=== PATIENT | male | born 1965 | race Caucasian/White ===

== ENCOUNTER → 2017-08-27 | Outpatient (CLI) | payer OTHER ==
[~2017-08-27] MED LIST: AMITRIPTYLINE H25 M2 PO; COREG6.25 MG PO; ETODOLAC500 MG PO; FLEXERIL PO; LOSARTAN POTAS100 MG PO; MEDROLDOSEPACK PO; TRAMADOL 50 MG50 MG PO
--- NOTE | 2017-09-08 08:16 | PAINCON ---
[address] [address] PAIN MANAGEMENT CONSULTATION Name: PAPI RAMOS Room: [facility] JOSHUA HarryYung#: [id number] Admission: 08/27/17 Attend Phys: Tracey Faria MD Discharge: Date of : 67 Report #: [id number] THIS REPORT FOR: //name// CC: Edward PHILLIPS MD DATE OF SERVICE: 08/27/2017 CHIEF COMPLAINT: "I had back surgery about 4 years ago, and now, I have pain down in my leg again, I was sent here for an injection." FOLLOWUP HISTORY: The patient is a 51-year-old gentleman, who has been referred to the Pain Clinic for evaluation. The patient states that he had some problems with his back in the past. He had lumbar radicular pain that was radiating down into his leg. He underwent back surgery. He did relatively well for quite a number of years. This was back in 2013. Over the last few weeks, he has noted some worsening of pain and discomfort, which has started in the lower portion of his back and radiates down into the anterior portion of his left leg, top of his foot, with numbness in the area of his big toe. He followed up with his physician, Dr. Phillips. He has been referred to the Pain Clinic for evaluation with the possibility of an epidural steroid injection to note its efficacy. He denies any trauma. He denies any real change in bowel or bladder function at this juncture. He finds it difficult to engage in activities of daily living. Notes that the pain is problematic when he is walking. He can walk for a period of time, then his pain becomes extremely problematic. This limits his ability to walk. He must stop and then sit down. After a few minutes, he notes the pain somewhat dissipates and then he is able to proceed again, but still continuing to be limited in the amount of activity he can engage in. He rates his pain as a 3/10 at this juncture. It can rise to the level of 9/10, which stops him from engaging in any further activities. ALLERGIES: No known drug allergies. CURRENT MEDICATIONS: Coreg 6.25 mg b.i.d., Flexeril 10 mg b.i.d., etodolac 500 mg b.i.d., losartan 100 mg daily, tramadol 50 mg as directed. PAST MEDICAL HISTORY: 1. Lumbar radiculopathy. 2. Hypertension. PAST SURGICAL HISTORY: 1. Right knee ACL repair in 1995. 2. Left hand surgery in 2009. 3. [place] [address] PAIN MANAGEMENT CONSULTATION Name: PAPI RAMOS Room: [facility]#: [id number] Admission: 08/27/17 Attend Phys: Tracey Faria MD Discharge: Date of : 67 Report #: [id number] SOCIAL HISTORY: He is a lunch truck driver. He has been off work for about 7 weeks at this juncture. REVIEW OF SYSTEMS: A 14-point review, generally good health, wears glasses, back pain, difficulty walking, numbness and tingling sensation down the left leg involving the great toe. LABORATORY DATA: No new laboratory is available. PAIN CLINIC ASSESSMENT: 1. The patient states he is not being treated for osteoarthritis or rheumatoid arthritis. 2. Height 5 feet 10 inches, weight 262 pounds, BMI is 37.7. 3. Vital signs: Blood pressure 136/80, heart rate 91, respiratory rate 16, room air saturation 95%, temperature 97.6. 4. Pain intensity: The patient does not have significant pain when he is sitting, but notes that his pain within about 10 minutes can rise to a level of 8 to 9. This stops him from his activity and he must rest. 5. Fall risk: The patient has not fallen in the last 3 months. 6. Blood thinner: The patient is not on a blood thinner 7. History of hypertension: The patient is being treated for hypertension. 8. Opioid therapy greater than 6 weeks: The patient is not on opioid therapy greater than 6 weeks. 9. Risk assessment tool. 10. Functional assessment tool: Rates his pain as a 25/70, which shows some impact on his activities of daily living in regards to mood, walking, work, relationships with others, sleep as well as enjoyment of life. 11. Recreational drug use: Denies recreational drug use. 12. Tobacco: The patient denies use of tobacco. 13. Alcohol: The patient did drink daily prior to this problem. He does not drink on a regular basis now that he is having this pain and taking his current medications for pain control. PHYSICAL EXAMINATION: GENERAL: The patient is a well-developed, well-nourished, white male. He appears his stated age. ORIENTATION: The patient is alert and oriented x 3. AFFECT: The patient's affect is appropriate. HEENT: Normocephalic, atraumatic. Extraocular eye muscles intact. Sclerae nonicteric. Hearing is within normal limits. Mucous membranes are moist. NECK: Good flexion and extension, left and right lateral bending, left and right lateral rotation. CHEST: Clears to auscultation without rales or rhonchi. HEART: Regular rate. Normal S1, S2 without rubs or murmurs. ABDOMEN: Nontender. MUSCULOSKELETAL: Within normal limits without significant scoliosis, [place] [address] PAIN MANAGEMENT CONSULTATION Name: PAPI RAMOS Room: [facility]#: [id number] Admission: 08/27/17 Attend Phys: Tracey Faria MD Discharge: Date of : 67 Report #: [id number] or lordosis. The patient does have some pain and discomfort in the left lower buttocks area. Forward bending to about 50 degrees caused some increased pain and discomfort radiating down into the anterior portion of the left leg. Sensory changes along the L5 dermatomal area are noted. Some muscle weakness is appreciated secondary to pain. He is able to walk, stand on his heels, and stand on his toes. Ranjeet's sign is negative. Anterior and posterior spring test is negative. IMPRESSION: 1. Recurrence of lumbar radiculopathy in the L4-L5 nerve sensory distribution. The patient has had back surgery in the L4 nerve root area and has had a recurrence of pain and discomfort. 2. Hypertension. RECOMMENDATIONS: We discussed treatment options with the patient. Risks and benefits of an epidural steroid injection were discussed. The patient has noted, over the past few weeks, some worsening of pain and discomfort starting in May of this year. He has tried conservative approaches. He is using nonsteroidal anti-inflammatory medications, trying stretching, tries to stay active, but has continued to have pain, which is worsening with pain radiating down the L5-L4 dermatomal distribution with numbness and weakness. The patient is only able to walk about 10 minutes before onset of the pain, it becomes so severe that he must stop. He has come to the Pain Clinic. We have discussed the possibility of improvement using an epidural steroid injection. It appears that he can have some nerve root irritation at the L4 nerve root on the affected side. He will return to the Pain Clinic after he has been granted precertification by his insurance company. We will then proceed with a transforaminal epidural steroid injection with the desire of helping to improve pain and discomfort, which he is experiencing. He will call us if he has any problems in the interim. We would like to thank you for letting us participate in his care. We hope he continues to improve. <ELECTRONICALLY SIGNED> By: Tracey Faria MD 09/08/17 0816 [id number]. Nba Faria MD /nt
== END ==
LOC: M.PC 01:28
DX: M54.16 Radiculopathy, lumbar region (principal); I10 Essential (primary) hypertension

== ENCOUNTER → 2017-09-03 | Outpatient (CLI) | payer OTHER ==
--- NOTE | 2017-09-16 08:18 | PAINCON ---
[address] [address] PAIN MANAGEMENT CONSULTATION Name: PAPI RAMOS Room: [facility] HarryTimoteoChiaraTimoteo#: [id number] Admission: 09/03/17 Attend Phys: Tracey Faria MD Discharge: Date of : 67 Report #: [id number] THIS REPORT FOR: //name// CC: Edward ZHENG MD DATE OF SERVICE: 09/03/2017 FOLLOWUP COMPLAINT: Here for an epidural steroid injection. FOLLOWUP HISTORY: The patient is a 51-year-old gentleman who has been seen in the pain clinic. He has had some problems with his back in the past. He has suffered from lumbar radiculopathy. He has had pain, which was quite problematic. He underwent surgery for this chronic pain back in 2013. He did quite well for a number of years. At this juncture, he had noticed some worsening of his pain and discomfort, which has been radiating down the anterior portion of his left leg and to the top of his foot with some numbness in his big toe. He was seen on 08/27/2017 in the Pain Clinic. We petitioned his insurance company. They have allowed him to proceed with a lumbar epidural steroid injection. Risks and benefits of procedure were again reviewed with the patient. He states that he is aware of possible complication and would like to proceed with a treatment at this juncture. ALLERGIES: No known drug allergies. CURRENT MEDICATIONS: Coreg 6.25 mg b.i.d., Flexeril 10 mg b.i.d., etodolac 500 mg b.i.d., losartan 100 mg daily, tramadol 50 mg as directed. PAIN CLINIC ASSESSMENT: 1. The patient is not being treated for rheumatoid arthritis. He has had some ostial changes in his lower back. 2. Height 5 feet 10 inches, weight 258 pounds, BMI is 37. 3. Vital signs: Blood pressure 122/73, heart rate 92, respiratory rate 16, room air saturation 96%, temperature 97.7. 4. Pain intensity: Rates pain as an 8-9, depending on his activity. 5. Fall risk: The patient has not fallen in the last 3 months. 6. Blood thinner: The patient is not on a blood thinner. 7. History of hypertension: The patient is being treated for hypertension. 8. Opioid therapy greater than 6 weeks: The patient is not on opioid therapy regimen. 9. Risk assessment tool. 10. Functional assessment tool: He rates his pain as a 25/70 indicating moderate impact on activities of daily living in regards to mood, walking, work relationships with others and enjoyment of life. 11. Recreational drug use: The patient denies [place] [address] PAIN MANAGEMENT CONSULTATION Name: PAPI RAMOS Room: [facility]#: [id number] Admission: 09/03/17 Attend Phys: Tracey Faria MD Discharge: Date of : 67 Report #: [id number] 12. Tobacco: The patient denies use of tobacco. 13. Alcohol: The patient does not drink on a regular basis at this juncture. PHYSICAL EXAMINATION: GENERAL: The patient is a well-developed, well-nourished white male. He appears his stated age. ORIENTATION: The patient is alert and oriented x 3. AFFECT: The patient's affect is appropriate. SPEECH: Smooth and fluent. HEENT: Normocephalic, atraumatic. Extraocular eye muscles intact. Sclerae not icteric. The patient has hearing within normal limits. Mucous membranes are moist. NECK: Good flexion and extension, left and right lateral bending, left and right lateral rotation. CHEST: Clear to auscultation without rales or rhonchi. HEART: Regular rate, normal S1, S2, without rubs or murmur. ABDOMEN: Nontender. MUSCULOSKELETAL: Within normal limits without significant scoliosis, kyphosis or lordosis. The patient does have some pain and discomfort in his left lower buttocks area. Forward bending to 50 degrees caused some increased pain and discomfort with pain radiating down the anterior portion of his left leg with numbness over the dorsum of his foot and large great toe. Sensory changes along the L5 dermatomal area were noted. The patient has some muscle weakness associated with pain. He is able to walk. He is able to stand on his heels as well as rock back and forth on his toes. Ranjeet's sign is negative. Anterior and posterior spring tests are negative. IMPRESSION: 1. Recurrence of lumbar radiculopathy in the L4-L5 nerve sensory distribution. The patient has had low back surgery in the L4 nerve root area and has had some recurrence of pain and discomfort. 2. Hypertension. RECOMMENDATIONS: The patient has returned to the Pain Clinic for an epidural steroid injection. Risks and benefits of the epidural steroid injection were again reviewed. They could include, but are not limited to infection, increased muscle soreness, headache, bleeding, worsening of pain, improvement of pain, nerve damage. The patient elects to proceed. PROCEDURE NOTE: The patient was taken to the procedure area. He was assisted in getting on the examination table. His back was sterilely prepped with a Betadine solution. This was at the L4-L5 interspace. Fluoroscopy using anterior and posterior as well as lateral viewing were utilized to identify the left L4 nerve root area. Using the transforaminal approach, a 20-gauge spinal needle was then advanced into the appropriate position. After confirmation with fluoroscopy, a total of 80 mg Depo-Medrol and 2 mL of 0.25% [place] [address] PAIN MANAGEMENT CONSULTATION Name: RACHELPAPI [facility] [id number] Admission: 09/03/17 Attend Phys: Tracey Faria MD Discharge: Date of : 67 Report #: [id number] injected. The patient tolerated the procedure well. Pain decreased from 8-9 to 0 at the time of discharge. Total of 1 minute fluoroscopy time was used. The patient was taken to the recovery area. A Band-Aid was placed over the site. There was no bleeding. He remained for an appropriate amount of time. He will follow up in the future as needed. We would like to thank you for letting us participate in his care. We hope he continues to improve. <ELECTRONICALLY SIGNED> By: Tracey Faria MD 09/16/17 0818 [id number]. Nba Faria MD /nt
== END | disposition home or self-care (01) ==
LOC: M.PC 03:27
DX: M54.16 Radiculopathy, lumbar region (principal); G89.29 Other chronic pain; I10 Essential (primary) hypertension; Z79.899 Other long term (current) drug therapy; Z98.890 Other specified postprocedural states

== ENCOUNTER → 2017-11-25 | Outpatient (CLI) | payer OTHER | LOC: M.MRI 06:51 | DX: M47.26 Other spondylosis with radiculopathy, lumbar region (principal) ==